=== PATIENT | female | born 1995 | race Two or more races ===

== ENCOUNTER 2016-12-07 12:16 | Emergency (ER) | payer MEDICAID, SELFPAY ==
[~2016-12-07] VITALS: Ht 149.9 cm; Wt 48.9 kg
[2016-12-07] MEDS ORDERED: prenatal PO (13:58)
[2016-12-07 14:59] LABS: ASPARTATE AMINO TRANSFERASE 11 U/L (15-37); BLOOD UREA NITROGEN 6 mg/dL (7-18)
[2016-12-07 15:46] VITALS: BP 118/77
== END 2016-12-07 15:49 | disposition home or self-care (01) ==
LOC: ED 15:00
DX: O26.892 Other specified pregnancy related conditions, second trimester (principal); R10.84 Generalized abdominal pain; Z3A.15 15 weeks gestation of pregnancy
CPT/HCPCS: 36415; 76805; 80053; 81003; 85025